=== PATIENT | female | born 1935 | race African-American/Black ===

== ENCOUNTER 2017-08-07 18:15 | Inpatient (IN) | payer MEDICARE, OTHER ==
[~2017-08-07] VITALS: Ht 149.9 cm; Wt 41.7 kg
[~2017-08-07 18:15] MED LIST: CARV25 PO; HYDR25TA PO; TIOT185 IH
[2017-08-07 19:00] VITALS: BP 131/76
[2017-08-07] MEDS ORDERED: FUROSEMIDE 20 MG/2 ML VIAL IVP SCH (21:00)
[2017-08-07] MEDS ORDERED: DOCUSATE SODIUM 283 MG/5 ML MINI-ENEMA PR PRN (21:45)
[2017-08-07] MEDS ORDERED: POTASSIUM CHLORIDE 20 MEQ ER TABLET PO PRN (21:45)
[2017-08-07] MEDS ORDERED: ALBUTEROL SULFATE 2.5 MG/0.5 ML NEB SOLUTION NEB PRN (22:15)
[2017-08-07] MEDS ORDERED: MAGNESIUM HYDROXIDE SUSPENSION 30 ML UDCUP PO PRN (22:15)
[2017-08-07] MEDS: HEPARIN SODIUM,PORCINE 5,000 UNITS/ML VIAL SQ SCH (22:28)
[2017-08-08 00:57] VITALS: BP 120/68
[2017-08-08 02:21] LABS: APPEARANCE,URINE CLEAR (CLEAR); BILIRUBIN,URINE NEGATIVE (NEGATIVE); GLUCOSE, URINE (UA) NEGATIVE (NEGATIVE); KETONES,URINE NEGATIVE (NEGATIVE); LEUKOCYTE ESTERASE ,URINE NEGATIVE (NEGATIVE); NITRATE,URINE NEGATIVE (NEGATIVE); OCCULT BLOOD,URINE NEGATIVE (NEGATIVE); PH,URINE 7.5 (5.0-8.0); PROTEIN,URINE NEGATIVE (NEGATIVE)
[2017-08-08 02:31] LABS: BACTERIA,URINE None Seen /HPF (None Seen); RBC,URINE 0-2 /HPF (0-2); WBC,URINE None Seen /HPF (0-5)
[2017-08-08 06:38] LABS: BASOPHILS % (AUTO) 1.6 % (0.0-2.0); EOSINOPHILS % (AUTO) 3.3 % (1.0-6.0); HEMOGLOBIN 10.3 g/dL (12.0-16.0); LYMPHOCYTES # (AUTO) 1.1 K/uL (1.0-4.8); LYMPHOCYTES % (AUTO) 25.9 % (22.0-44.0); MEAN CORPUSCULAR HGB CONC 34.5 G/dL (31.0-37.0); MEAN CORPUSCULAR VOLUME 107 fL (80-100); MONOCYTES # (AUTO) 0.4 K/uL (0.1-1.0); MONOCYTES % (AUTO) 9.9 % (2.0-9.0); NEUTROPHILS # (AUTO) 2.4 K/uL (1.8-7.7); NEUTROPHILS % (AUTO) 59.3 % (40.0-70.0); PLATELET COUNT (AUTO) 258 K/uL (150-450); RED CELL DISTRIBUTION WIDTH 15.3 % (11.5-14.5)
[2017-08-08 06:56] LABS: ALANINE AMINOTRANSFERASE 32 U/L (12-78); ALBUMIN 2.9 g/dL (3.4-5.0); ALKALINE PHOSPHATASE 105 U/L (46-116); ANION GAP 5 mmol/L (8-16); ASPARTATE AMINOTRANSFERASE 34 U/L (15-37); BILIRUBIN,TOTAL 0.6 mg/dL (0.1-1.0); CALCIUM, TOTAL 8.8 mg/dL (8.8-10.5); CARBON DIOXIDE 34 mmol/L (22-29); CHLORIDE 90 mmol/L (98-107); CREATININE 0.87 mg/dL (0.60-1.30); GLOMERULAR FILTR. RATE CALC > 60 mL/min (>60); GLUCOSE,RANDOM 92 mg/dL (70-110); POTASSIUM 3.8 mmol/L (3.5-5.1); SODIUM SERUM 129 mmol/L (136-145); TOTAL PROTEIN, SERUM 6.7 g/dL (6.4-8.2); UREA NITROGEN, BLOOD 12 mg/dL (7-18)
[2017-08-08] MEDS: OXYGEN THERAPY IH SCH ×2 (08:00→20:00)
[2017-08-08 08:05] VITALS: BP 134/62
[2017-08-08] MEDS: ASPIRIN 81 MG CHEWABLE TABLET PO SCH (08:36)
[2017-08-08] MEDS: DOCUSATE SODIUM 100 MG CAPSULE PO SCH ×2 (08:36→20:32)
[2017-08-08] MEDS: CHOLECALCIFEROL (VIT D3) 1,000 UNITS TABLET PO SCH (08:37)
[2017-08-08] MEDS: MULTIVITAMINS, THERAPEUTIC TABLET PO SCH (08:37)
[2017-08-08] MEDS: POTASSIUM CHLORIDE 20 MEQ ER TABLET PO SCH ×2 (08:37→20:32)
[2017-08-08] MEDS: PANTOPRAZOLE SODIUM 40 MG DR TABLET PO SCH (08:37)
[2017-08-08] MEDS: FUROSEMIDE 20 MG TABLET PO SCH (08:38)
[2017-08-08] MEDS: FOLIC ACID 1 MG TABLET PO SCH (08:38)
[2017-08-08] MEDS: HEPARIN SODIUM,PORCINE 5,000 UNITS/ML VIAL SQ SCH ×2 (08:38→23:00)
[2017-08-08] MEDS: MAGNESIUM OXIDE 400 MG TABLET PO PRN ×3 (10:00→20:32)
[2017-08-08 10:24] LABS: ABG A-A DIFF O2 15.9 mmHg (10-20.0); ABG BASE EXCESS 4.4 mmol/L (-2.0-3.0); ABG CARBOXYHEMOGLOBIN 0.9 % (0.0-1.5); ABG HCO3 28.4 mmol/L (22.0-26.0); ABG METHEMOGLOBIN 0.3 % (0.0-1.5); ABG OXYGEN CONTENT 15.1 mL/dL (15.0-23.0); ABG OXYGEN SATURATION 97.2 % (95.0-98.0); ABG PCO2 35 mmHg (35-45); ABG PH 7.508 (7.35-7.450); ABG TOTAL HEMOGLOBIN 11.1 G/dL (12.0-18.0); PO2, ARTERIAL BG 91.6 mmHg (75.0-83.0); SOURCE, BLOOD GAS ARTERIAL; TEMPERATURE, FAHRENHEIT, BG 98.3 FAHREN (96.0-98.6)
[2017-08-08 10:25] LABS: SITE, BLOOD GAS RT RADIAL
[2017-08-08] MEDS ORDERED: SODIUM CHLORIDE 0.9% 100 ML ONE (14:40)
[2017-08-08] MEDS ORDERED: BARIUM SULFATE 0.1% SUSPENSION 450 ML BOTTLE ONE (14:40)
[2017-08-08] MEDS ORDERED: IOVERSOL 320 MG/ML 100 ML VIAL ONE (14:40)
[2017-08-08 15:20] VITALS: BP 122/52
[2017-08-08] MEDS: ChlordiazePOXIDE HCL 25 MG CAPSULE PO SCH ×2 (18:09→20:32)
[2017-08-08] MEDS: SENNA 187 MG TABLET PO SCH (20:32)
[2017-08-08 23:20] VITALS: BP 121/74
[2017-08-09] MEDS: OXYGEN THERAPY IH SCH ×2 (08:01→20:41)
[2017-08-09 08:13] VITALS: BP 132/67
[2017-08-09 09:46] LABS: ALANINE AMINOTRANSFERASE 38 U/L (12-78); ALBUMIN 2.8 g/dL (3.4-5.0); ALKALINE PHOSPHATASE 98 U/L (46-116); ANION GAP 6 mmol/L (8-16); ASPARTATE AMINOTRANSFERASE 36 U/L (15-37); BILIRUBIN,TOTAL 0.5 mg/dL (0.1-1.0); CARBON DIOXIDE 31 mmol/L (22-29); CHLORIDE 94 mmol/L (98-107); CREATININE 0.88 mg/dL (0.60-1.30); GLOMERULAR FILTR. RATE CALC > 60 mL/min (>60); GLUCOSE,RANDOM 75 mg/dL (70-110); POTASSIUM 4.7 mmol/L (3.5-5.1); SODIUM SERUM 131 mmol/L (136-145); TOTAL PROTEIN, SERUM 6.5 g/dL (6.4-8.2); UREA NITROGEN, BLOOD 15 mg/dL (7-18); URIC ACID 5.5 mg/dL (2.6-7.2)
[2017-08-09] MEDS: FOLIC ACID 1 MG TABLET PO SCH (10:02)
[2017-08-09] MEDS: DOCUSATE SODIUM 100 MG CAPSULE PO SCH ×2 (10:02→20:41)
[2017-08-09] MEDS: FUROSEMIDE 20 MG TABLET PO SCH (10:03)
[2017-08-09] MEDS: MULTIVITAMINS, THERAPEUTIC TABLET PO SCH (10:03)
[2017-08-09] MEDS: CHOLECALCIFEROL (VIT D3) 1,000 UNITS TABLET PO SCH (10:03)
[2017-08-09] MEDS: HEPARIN SODIUM,PORCINE 5,000 UNITS/ML VIAL SQ SCH ×2 (10:03→20:41)
[2017-08-09] MEDS: PANTOPRAZOLE SODIUM 40 MG DR TABLET PO SCH (10:03)
[2017-08-09] MEDS: POTASSIUM CHLORIDE 20 MEQ ER TABLET PO SCH ×2 (10:03→20:41)
[2017-08-09] MEDS: ASPIRIN 81 MG CHEWABLE TABLET PO SCH (10:03)
[2017-08-09] MEDS: ChlordiazePOXIDE HCL 25 MG CAPSULE PO SCH (10:04)
[2017-08-09 16:00] LABS: CREATININE,URINE RANDOM 77.4 mg/dL (30.0-125.0)
[2017-08-09 16:45] VITALS: BP 114/75
[2017-08-09] MEDS: SENNA 187 MG TABLET PO SCH (20:41)
[2017-08-10 01:00] VITALS: BP 164/95
[2017-08-10 06:12] VITALS: BP 120/70
[2017-08-10 07:22] LABS: ANION GAP 3 mmol/L (8-16); CALCIUM, TOTAL 9.3 mg/dL (8.8-10.5); CARBON DIOXIDE 32 mmol/L (22-29); CHLORIDE 97 mmol/L (98-107); CREATININE 0.88 mg/dL (0.60-1.30); GLOMERULAR FILTR. RATE CALC > 60 mL/min (>60); GLUCOSE,RANDOM 80 mg/dL (70-110); POTASSIUM 5.4 mmol/L (3.5-5.1); SODIUM SERUM 132 mmol/L (136-145); UREA NITROGEN, BLOOD 18 mg/dL (7-18)
[2017-08-10 08:00] VITALS: BP 137/70
[2017-08-10] MEDS: OXYGEN THERAPY IH SCH ×2 (08:00→20:00)
[2017-08-10] MEDS: HEPARIN SODIUM,PORCINE 5,000 UNITS/ML VIAL SQ SCH ×2 (08:27→20:57)
[2017-08-10] MEDS: POTASSIUM CHLORIDE 20 MEQ ER TABLET PO SCH ×2 (08:27→09:00)
[2017-08-10] MEDS: PANTOPRAZOLE SODIUM 40 MG DR TABLET PO SCH (08:27)
[2017-08-10] MEDS: ASPIRIN 81 MG CHEWABLE TABLET PO SCH (08:27)
[2017-08-10] MEDS: CHOLECALCIFEROL (VIT D3) 1,000 UNITS TABLET PO SCH (08:27)
[2017-08-10] MEDS: MULTIVITAMINS, THERAPEUTIC TABLET PO SCH (08:27)
[2017-08-10] MEDS: FUROSEMIDE 20 MG TABLET PO SCH (08:27)
[2017-08-10] MEDS: FOLIC ACID 1 MG TABLET PO SCH (08:27)
[2017-08-10] MEDS: DOCUSATE SODIUM 100 MG CAPSULE PO SCH ×2 (09:00→21:00)
[2017-08-10 15:16] VITALS: BP 124/78
[2017-08-10 21:00] VITALS: BP 142/63
[2017-08-10] MEDS: SENNA 187 MG TABLET PO SCH (21:00)
[2017-08-11 03:40] VITALS: BP 110/68
[2017-08-11] MEDS: OXYGEN THERAPY IH SCH ×2 (08:00→20:00)
[2017-08-11 08:14] VITALS: BP 126/84
[2017-08-11 08:28] LABS: ANION GAP 5 mmol/L (8-16); CALCIUM, TOTAL 9.3 mg/dL (8.8-10.5); CARBON DIOXIDE 32 mmol/L (22-29); CHLORIDE 96 mmol/L (98-107); CREATININE 0.82 mg/dL (0.60-1.30); FERRITIN 1406 ng/mL (8-252); GLOMERULAR FILTR. RATE CALC > 60 mL/min (>60); GLUCOSE,RANDOM 80 mg/dL (70-110); POTASSIUM 4.8 mmol/L (3.5-5.1); SODIUM SERUM 133 mmol/L (136-145); UREA NITROGEN, BLOOD 16 mg/dL (7-18)
[2017-08-11 08:32] LABS: % IRON SATURATION 37.4 % (22-44); IRON, SERUM 82 mcg/dL (50-175); TOTAL IRON BINDING CAPACITY 219 mcg/dL (250-450)
[2017-08-11] MEDS: CHOLECALCIFEROL (VIT D3) 1,000 UNITS TABLET PO SCH (09:58)
[2017-08-11] MEDS: MULTIVITAMINS, THERAPEUTIC TABLET PO SCH (09:58)
[2017-08-11] MEDS: FOLIC ACID 1 MG TABLET PO SCH (09:58)
[2017-08-11] MEDS: PANTOPRAZOLE SODIUM 40 MG DR TABLET PO SCH (09:58)
[2017-08-11] MEDS: DOCUSATE SODIUM 100 MG CAPSULE PO SCH ×2 (09:58→20:23)
[2017-08-11] MEDS: FUROSEMIDE 20 MG TABLET PO SCH (09:59)
[2017-08-11] MEDS: ASPIRIN 81 MG CHEWABLE TABLET PO SCH (09:59)
[2017-08-11] MEDS: HEPARIN SODIUM,PORCINE 5,000 UNITS/ML VIAL SQ SCH ×2 (10:00→20:24)
[2017-08-11 15:06] VITALS: BP 128/68
[2017-08-11] MEDS: SENNA 187 MG TABLET PO SCH (20:23)
[2017-08-11 23:58] VITALS: BP 115/56
[2017-08-12 07:11] LABS: ANION GAP 7 mmol/L (8-16); CALCIUM, TOTAL 9.2 mg/dL (8.8-10.5); CARBON DIOXIDE 30 mmol/L (22-29); CHLORIDE 98 mmol/L (98-107); CREATININE 0.88 mg/dL (0.60-1.30); GLOMERULAR FILTR. RATE CALC > 60 mL/min (>60); GLUCOSE,RANDOM 86 mg/dL (70-110); PHOSPHORUS 2.8 mg/dL (2.5-4.9); POTASSIUM 4.2 mmol/L (3.5-5.1); SODIUM SERUM 135 mmol/L (136-145); UREA NITROGEN, BLOOD 12 mg/dL (7-18)
[2017-08-12 07:57] VITALS: BP 99/69
[2017-08-12] MEDS: OXYGEN THERAPY IH SCH (08:00)
[2017-08-12 09:46] VITALS: BP 92/73
[2017-08-12] MEDS: FOLIC ACID 1 MG TABLET PO SCH (09:51)
[2017-08-12] MEDS: CHOLECALCIFEROL (VIT D3) 1,000 UNITS TABLET PO SCH (09:51)
[2017-08-12] MEDS: ASPIRIN 81 MG CHEWABLE TABLET PO SCH (09:51)
[2017-08-12] MEDS: PANTOPRAZOLE SODIUM 40 MG DR TABLET PO SCH (09:52)
[2017-08-12] MEDS: MULTIVITAMINS, THERAPEUTIC TABLET PO SCH (09:52)
[2017-08-12] MEDS: HEPARIN SODIUM,PORCINE 5,000 UNITS/ML VIAL SQ SCH ×2 (09:52→19:07)
[2017-08-12] MEDS: DOCUSATE SODIUM 100 MG CAPSULE PO SCH ×2 (09:52→19:07)
[2017-08-12] MEDS ORDERED: MAGNESIUM SULFATE 4 GM/WATER 100 ML IV PRN (10:00)
[2017-08-12] MEDS: FUROSEMIDE 20 MG TABLET PO SCH (10:00)
[2017-08-12] MEDS ORDERED: MAGNESIUM GLUCONATE 1 GM/5 ML LIQUID 22 ML UDCUP PO PRN (10:00)
[2017-08-12] MEDS ORDERED: SODIUM CHLORIDE 0.9% 250 ML IV ONE (12:00)
[2017-08-12] MEDS: MAGNESIUM SULFATE 2 GM in DEXTROSE 5%-WATER 50 ML IV PRN (12:20)
[2017-08-12 16:03] VITALS: BP 117/70
[2017-08-12] MEDS: SENNA 187 MG TABLET PO SCH (19:07)
[2017-08-13 05:21] VITALS: BP 117/63
[2017-08-13 07:37] VITALS: BP 127/87
[2017-08-13 07:51] LABS: ANION GAP 6 mmol/L (8-16); CALCIUM, TOTAL 9.4 mg/dL (8.8-10.5); CARBON DIOXIDE 30 mmol/L (22-29); CHLORIDE 96 mmol/L (98-107); CREATININE 0.96 mg/dL (0.60-1.30); GLOMERULAR FILTR. RATE CALC > 60 mL/min (>60); GLUCOSE,RANDOM 94 mg/dL (70-110); POTASSIUM 3.9 mmol/L (3.5-5.1); SODIUM SERUM 132 mmol/L (136-145); UREA NITROGEN, BLOOD 13 mg/dL (7-18)
[2017-08-13 07:58] LABS: B-TYPE NATRIURETIC PEPTIDE 129 pg/mL (0-100)
[2017-08-13] MEDS: ASPIRIN 81 MG CHEWABLE TABLET PO SCH (08:49)
[2017-08-13] MEDS: FOLIC ACID 1 MG TABLET PO SCH (08:49)
[2017-08-13] MEDS: PANTOPRAZOLE SODIUM 40 MG DR TABLET PO SCH (08:49)
[2017-08-13] MEDS: DOCUSATE SODIUM 100 MG CAPSULE PO SCH ×2 (08:49→20:12)
[2017-08-13] MEDS: MULTIVITAMINS, THERAPEUTIC TABLET PO SCH (08:49)
[2017-08-13] MEDS: OXYGEN THERAPY IH SCH ×3 (08:49→20:00)
[2017-08-13] MEDS: MAGNESIUM OXIDE 400 MG TABLET PO PRN ×3 (08:50→21:01)
[2017-08-13] MEDS: HEPARIN SODIUM,PORCINE 5,000 UNITS/ML VIAL SQ SCH ×2 (08:50→20:14)
[2017-08-13] MEDS: CHOLECALCIFEROL (VIT D3) 1,000 UNITS TABLET PO SCH (08:50)
[2017-08-13 10:32] LABS: APPEARANCE,URINE CLOUDY (CLEAR); BILIRUBIN,URINE NEGATIVE (NEGATIVE); GLUCOSE, URINE (UA) NEGATIVE (NEGATIVE); KETONES,URINE NEGATIVE (NEGATIVE); LEUKOCYTE ESTERASE ,URINE TRACE (NEGATIVE); NITRATE,URINE NEGATIVE (NEGATIVE); OCCULT BLOOD,URINE NEGATIVE (NEGATIVE); PH,URINE 5.5 (5.0-8.0); PROTEIN,URINE NEGATIVE (NEGATIVE); UROBILINOGEN,URINE 0.2 mg/dL (<=1.0)
[2017-08-13 10:50] LABS: BACTERIA,URINE Few /HPF (None Seen); RBC,URINE 0-2 /HPF (0-2); SQUAMOUS EPITHELIAL CELL,UR Moderate /LPF (None Seen)
[2017-08-13 15:25] VITALS: BP 105/55
[2017-08-13 20:09] VITALS: BP 109/52
[2017-08-13] MEDS: SENNA 187 MG TABLET PO SCH (20:12)
[2017-08-14 00:07] VITALS: BP 137/52
[2017-08-14 07:06] LABS: MAGNESIUM 1.5 mg/dL (1.80-2.40)
[2017-08-14 07:30] VITALS: BP 102/51
[2017-08-14] MEDS: OXYGEN THERAPY IH SCH ×2 (08:00→20:00)
[2017-08-14] MEDS: ASPIRIN 81 MG CHEWABLE TABLET PO SCH (09:51)
[2017-08-14] MEDS: CHOLECALCIFEROL (VIT D3) 1,000 UNITS TABLET PO SCH (09:52)
[2017-08-14] MEDS: DOCUSATE SODIUM 100 MG CAPSULE PO SCH ×2 (09:52→20:12)
[2017-08-14] MEDS: PANTOPRAZOLE SODIUM 40 MG DR TABLET PO SCH (09:52)
[2017-08-14] MEDS: HEPARIN SODIUM,PORCINE 5,000 UNITS/ML VIAL SQ SCH ×2 (09:52→20:12)
[2017-08-14] MEDS: FOLIC ACID 1 MG TABLET PO SCH (09:52)
[2017-08-14] MEDS: MULTIVITAMINS, THERAPEUTIC TABLET PO SCH (09:52)
[2017-08-14 10:42] LABS: BASOPHILS % (AUTO) 0.8 % (0.0-2.0); EOSINOPHILS % (AUTO) 2.7 % (1.0-6.0); HEMATOCRIT 28.4 % (36-46); HEMOGLOBIN 9.8 g/dL (12.0-16.0); LYMPHOCYTES # (AUTO) 1.1 K/uL (1.0-4.8); LYMPHOCYTES % (AUTO) 26.3 % (22.0-44.0); MEAN CORPUSCULAR HEMOGLOBIN 37.1 pg (26.0-34.0); MEAN CORPUSCULAR HGB CONC 34.5 G/dL (31.0-37.0); MEAN CORPUSCULAR VOLUME 108 fL (80-100); MONOCYTES # (AUTO) 0.5 K/uL (0.1-1.0); MONOCYTES % (AUTO) 12.7 % (2.0-9.0); NEUTROPHILS # (AUTO) 2.3 K/uL (1.8-7.7); NEUTROPHILS % (AUTO) 57.5 % (40.0-70.0); PLATELET COUNT (AUTO) 322 K/uL (150-450); RED BLOOD CELL COUNT(AUTO) 2.64 MIL/uL (4.00-5.20); RED CELL DISTRIBUTION WIDTH 14.5 % (11.5-14.5)
[2017-08-14 10:44] LABS: POTASSIUM 4.1 mmol/L (3.5-5.1)
[2017-08-14 10:50] LABS: CREATININE 0.77 mg/dL (0.60-1.30)
[2017-08-14] MEDS ORDERED: SODIUM CHLORIDE 0.9% 250 ML IV ONE (15:50)
[2017-08-14] MEDS: 0.9% SODIUM CHLORIDE 10 ML SYRINGE IVP SCH (15:54)
[2017-08-14] MEDS: MAGNESIUM SULFATE 2 GM in DEXTROSE 5%-WATER 50 ML IV PRN (16:05)
[2017-08-14 16:09] VITALS: BP 123/81
[2017-08-14 20:10] VITALS: BP 101/75
[2017-08-14] MEDS: SENNA 187 MG TABLET PO SCH (20:12)
[2017-08-15] MEDS: 0.9% SODIUM CHLORIDE 10 ML SYRINGE IVP SCH ×3 (00:27→16:24)
[2017-08-15 00:35] VITALS: BP 145/70
[2017-08-15 06:34] LABS: BASOPHILS % (AUTO) 1.2 % (0.0-2.0); EOSINOPHILS % (AUTO) 3.1 % (1.0-6.0); LYMPHOCYTES # (AUTO) 0.9 K/uL (1.0-4.8); LYMPHOCYTES % (AUTO) 23.2 % (22.0-44.0); MEAN CORPUSCULAR HEMOGLOBIN 38.2 pg (26.0-34.0); MEAN CORPUSCULAR HGB CONC 35.9 G/dL (31.0-37.0); MEAN CORPUSCULAR VOLUME 106 fL (80-100); MONOCYTES # (AUTO) 0.4 K/uL (0.1-1.0); MONOCYTES % (AUTO) 10.3 % (2.0-9.0); NEUTROPHILS # (AUTO) 2.4 K/uL (1.8-7.7); NEUTROPHILS % (AUTO) 62.2 % (40.0-70.0); PLATELET COUNT (AUTO) 318 K/uL (150-450); RED BLOOD CELL COUNT(AUTO) 2.35 MIL/uL (4.00-5.20); RED CELL DISTRIBUTION WIDTH 14.4 % (11.5-14.5)
[2017-08-15 06:43] LABS: ANION GAP 4 mmol/L (8-16); CALCIUM, TOTAL 8.8 mg/dL (8.8-10.5); CARBON DIOXIDE 31 mmol/L (22-29); CHLORIDE 100 mmol/L (98-107); CREATININE 0.72 mg/dL (0.60-1.30); GLOMERULAR FILTR. RATE CALC > 60 mL/min (>60); GLUCOSE,RANDOM 83 mg/dL (70-110); SODIUM SERUM 135 mmol/L (136-145); UREA NITROGEN, BLOOD 12 mg/dL (7-18)
[2017-08-15 07:30] VITALS: BP 117/71
[2017-08-15] MEDS: OXYGEN THERAPY IH SCH ×2 (08:00→20:00)
[2017-08-15] MEDS: DOCUSATE SODIUM 100 MG CAPSULE PO SCH ×2 (08:45→20:30)
[2017-08-15] MEDS: HEPARIN SODIUM,PORCINE 5,000 UNITS/ML VIAL SQ SCH ×2 (08:45→20:27)
[2017-08-15] MEDS: ASPIRIN 81 MG CHEWABLE TABLET PO SCH (08:45)
[2017-08-15] MEDS: MULTIVITAMINS, THERAPEUTIC TABLET PO SCH (08:46)
[2017-08-15] MEDS: PANTOPRAZOLE SODIUM 40 MG DR TABLET PO SCH (08:46)
[2017-08-15] MEDS: FOLIC ACID 1 MG TABLET PO SCH (08:46)
[2017-08-15] MEDS: CHOLECALCIFEROL (VIT D3) 1,000 UNITS TABLET PO SCH (08:46)
[2017-08-15] MEDS: MAGNESIUM OXIDE 400 MG TABLET PO PRN ×3 (14:19→21:16)
[2017-08-15 15:45] VITALS: BP 115/64
[2017-08-15] MEDS ORDERED: ALPRAZolam 0.25 MG TABLET PO ONE (20:15)
[2017-08-15] MEDS: SENNA 187 MG TABLET PO SCH (20:30)
[2017-08-16] MEDS: 0.9% SODIUM CHLORIDE 10 ML SYRINGE IVP SCH ×4 (03:08→23:33)
[2017-08-16 03:30] VITALS: BP 147/69
[2017-08-16] MEDS: ACETAMINOPHEN 325 MG TABLET PO PRN ×2 (03:50→19:14)
[2017-08-16 07:40] VITALS: BP 112/66
[2017-08-16] MEDS: OXYGEN THERAPY IH SCH ×2 (08:00→19:14)
[2017-08-16] MEDS ORDERED: SODIUM CHLORIDE 0.9% 100 ML ONE (08:01)
[2017-08-16] MEDS: PANTOPRAZOLE SODIUM 40 MG DR TABLET PO SCH (08:30)
[2017-08-16] MEDS: DOCUSATE SODIUM 100 MG CAPSULE PO SCH ×2 (08:30→20:34)
[2017-08-16] MEDS: CHOLECALCIFEROL (VIT D3) 1,000 UNITS TABLET PO SCH (08:30)
[2017-08-16] MEDS: HEPARIN SODIUM,PORCINE 5,000 UNITS/ML VIAL SQ SCH ×2 (08:30→20:34)
[2017-08-16] MEDS: MULTIVITAMINS, THERAPEUTIC TABLET PO SCH (08:31)
[2017-08-16] MEDS: FOLIC ACID 1 MG TABLET PO SCH (08:31)
[2017-08-16] MEDS: ASPIRIN 81 MG CHEWABLE TABLET PO SCH (08:31)
[2017-08-16] MEDS: MAGNESIUM SULFATE 2 GM in DEXTROSE 5%-WATER 50 ML IV PRN (08:36)
[2017-08-16 15:42] VITALS: BP 105/72
[2017-08-16 19:10] VITALS: BP 111/75
[2017-08-16] MEDS: SENNA 187 MG TABLET PO SCH (20:34)
[2017-08-16 23:35] VITALS: BP 118/70
[2017-08-17 07:01] VITALS: BP 131/84
[2017-08-17] MEDS: ACETAMINOPHEN 325 MG TABLET PO PRN ×2 (07:01→18:45)
[2017-08-17] MEDS: OXYGEN THERAPY IH SCH ×2 (08:00→20:00)
[2017-08-17] MEDS ORDERED: PANT40TA25 PO (08:05)
[2017-08-17] MEDS ORDERED: DSS100 PO (08:05)
[2017-08-17] MEDS ORDERED: ASPI81 PO (08:05)
[2017-08-17] MEDS ORDERED: FOLI1 PO (08:05)
[2017-08-17] MEDS ORDERED: VITAD1000 PO (08:05)
[2017-08-17] MEDS ORDERED: MULT-1239 PO (08:05)
[2017-08-17] MEDS: MAGNESIUM SULFATE 2 GM in DEXTROSE 5%-WATER 50 ML IV PRN (08:07)
[2017-08-17] MEDS: 0.9% SODIUM CHLORIDE 10 ML SYRINGE IVP SCH ×3 (08:07→23:27)
[2017-08-17] MEDS: CHOLECALCIFEROL (VIT D3) 1,000 UNITS TABLET PO SCH (08:08)
[2017-08-17] MEDS: PANTOPRAZOLE SODIUM 40 MG DR TABLET PO SCH (08:08)
[2017-08-17] MEDS: ASPIRIN 81 MG CHEWABLE TABLET PO SCH (08:08)
[2017-08-17] MEDS: HEPARIN SODIUM,PORCINE 5,000 UNITS/ML VIAL SQ SCH ×2 (08:08→20:24)
[2017-08-17] MEDS: FOLIC ACID 1 MG TABLET PO SCH (08:08)
[2017-08-17] MEDS: DOCUSATE SODIUM 100 MG CAPSULE PO SCH ×2 (08:08→20:23)
[2017-08-17] MEDS: MULTIVITAMINS, THERAPEUTIC TABLET PO SCH (08:08)
[2017-08-17] MEDS ORDERED: MAGNESIUM CHLORIDE 64 MG ER TABLET PO SCH (10:00)
[2017-08-17 15:36] VITALS: BP 115/72
[2017-08-17] MEDS: SENNA 187 MG TABLET PO SCH (20:23)
[2017-08-17 23:45] VITALS: BP 118/70
[2017-08-18 07:24] LABS: ANION GAP 3 mmol/L (8-16); CARBON DIOXIDE 30 mmol/L (22-29); CHLORIDE 104 mmol/L (98-107); CREATININE 0.67 mg/dL (0.60-1.30); GLOMERULAR FILTR. RATE CALC > 60 mL/min (>60); GLUCOSE,RANDOM 89 mg/dL (70-110); POTASSIUM 4.1 mmol/L (3.5-5.1); SODIUM SERUM 137 mmol/L (136-145); UREA NITROGEN, BLOOD 12 mg/dL (7-18)
[2017-08-18 07:44] VITALS: BP 124/90
[2017-08-18] MEDS: OXYGEN THERAPY IH SCH ×2 (08:00→19:31)
[2017-08-18] MEDS: MULTIVITAMINS, THERAPEUTIC TABLET PO SCH (08:14)
[2017-08-18] MEDS: ASPIRIN 81 MG CHEWABLE TABLET PO SCH (08:14)
[2017-08-18] MEDS: PANTOPRAZOLE SODIUM 40 MG DR TABLET PO SCH (08:14)
[2017-08-18] MEDS: HEPARIN SODIUM,PORCINE 5,000 UNITS/ML VIAL SQ SCH ×2 (08:14→20:50)
[2017-08-18] MEDS: CHOLECALCIFEROL (VIT D3) 1,000 UNITS TABLET PO SCH (08:14)
[2017-08-18] MEDS: DOCUSATE SODIUM 100 MG CAPSULE PO SCH ×2 (08:14→20:50)
[2017-08-18] MEDS: FOLIC ACID 1 MG TABLET PO SCH (08:14)
[2017-08-18] MEDS: 0.9% SODIUM CHLORIDE 10 ML SYRINGE IVP SCH ×2 (08:16→17:20)
[2017-08-18] MEDS: MAGNESIUM SULFATE 2 GM in DEXTROSE 5%-WATER 50 ML IV PRN (09:01)
[2017-08-18] MEDS: MAGNESIUM CHLORIDE 64 MG ER TABLET PO SCH (09:49)
[2017-08-18 10:14] LABS: BASOPHILS % (AUTO) 1.3 % (0.0-2.0); EOSINOPHILS % (AUTO) 2.8 % (1.0-6.0); HEMOGLOBIN 8.3 g/dL (12.0-16.0); LYMPHOCYTES # (AUTO) 1.2 K/uL (1.0-4.8); LYMPHOCYTES % (AUTO) 23.9 % (22.0-44.0); MEAN CORPUSCULAR HEMOGLOBIN 36.8 pg (26.0-34.0); MEAN CORPUSCULAR HGB CONC 34.6 G/dL (31.0-37.0); MEAN CORPUSCULAR VOLUME 107 fL (80-100); MONOCYTES # (AUTO) 0.4 K/uL (0.1-1.0); MONOCYTES % (AUTO) 8.5 % (2.0-9.0); NEUTROPHILS # (AUTO) 3.1 K/uL (1.8-7.7); NEUTROPHILS % (AUTO) 63.5 % (40.0-70.0); PLATELET COUNT (AUTO) 290 K/uL (150-450); RED BLOOD CELL COUNT(AUTO) 2.25 MIL/uL (4.00-5.20); RED CELL DISTRIBUTION WIDTH 14.1 % (11.5-14.5)
[2017-08-18 17:34] VITALS: BP 132/72
[2017-08-18] MEDS: SENNA 187 MG TABLET PO SCH (20:50)
[2017-08-19] MEDS: 0.9% SODIUM CHLORIDE 10 ML SYRINGE IVP SCH ×4 (02:38→23:20)
[2017-08-19 03:00] VITALS: BP 132/90
[2017-08-19 07:18] LABS: BASOPHILS % (AUTO) 0.9 % (0.0-2.0); EOSINOPHILS % (AUTO) 2.8 % (1.0-6.0); HEMATOCRIT 25.3 % (36-46); HEMOGLOBIN 8.7 g/dL (12.0-16.0); LYMPHOCYTES % (AUTO) 17.6 % (22.0-44.0); MEAN CORPUSCULAR HEMOGLOBIN 36.6 pg (26.0-34.0); MEAN CORPUSCULAR HGB CONC 34.5 G/dL (31.0-37.0); MEAN CORPUSCULAR VOLUME 106 fL (80-100); MONOCYTES # (AUTO) 0.4 K/uL (0.1-1.0); MONOCYTES % (AUTO) 7.4 % (2.0-9.0); NEUTROPHILS # (AUTO) 3.9 K/uL (1.8-7.7); NEUTROPHILS % (AUTO) 71.3 % (40.0-70.0); PLATELET COUNT (AUTO) 283 K/uL (150-450); RED BLOOD CELL COUNT(AUTO) 2.39 MIL/uL (4.00-5.20); RED CELL DISTRIBUTION WIDTH 14.2 % (11.5-14.5)
[2017-08-19 07:32] LABS: ALBUMIN 2.5 g/dL (3.4-5.0); ANION GAP 3 mmol/L (8-16); CARBON DIOXIDE 30 mmol/L (22-29); CHLORIDE 104 mmol/L (98-107); CREATININE 0.77 mg/dL (0.60-1.30); GLOMERULAR FILTR. RATE CALC > 60 mL/min (>60); GLUCOSE,RANDOM 87 mg/dL (70-110); POTASSIUM 3.9 mmol/L (3.5-5.1); SODIUM SERUM 137 mmol/L (136-145); UREA NITROGEN, BLOOD 12 mg/dL (7-18)
[2017-08-19 08:05] VITALS: BP 160/82
[2017-08-19] MEDS: CHOLECALCIFEROL (VIT D3) 1,000 UNITS TABLET PO SCH (08:50)
[2017-08-19] MEDS: HEPARIN SODIUM,PORCINE 5,000 UNITS/ML VIAL SQ SCH ×2 (08:50→20:45)
[2017-08-19] MEDS: FOLIC ACID 1 MG TABLET PO SCH (08:50)
[2017-08-19] MEDS: MULTIVITAMINS, THERAPEUTIC TABLET PO SCH (08:50)
[2017-08-19] MEDS: PANTOPRAZOLE SODIUM 40 MG DR TABLET PO SCH (08:50)
[2017-08-19] MEDS: DOCUSATE SODIUM 100 MG CAPSULE PO SCH ×2 (08:50→20:45)
[2017-08-19] MEDS: MAGNESIUM CHLORIDE 64 MG ER TABLET PO SCH (09:00)
[2017-08-19] MEDS: OXYGEN THERAPY IH SCH ×2 (09:01→20:00)
[2017-08-19] MEDS: MAGNESIUM SULFATE 2 GM in DEXTROSE 5%-WATER 50 ML IV PRN (12:10)
[2017-08-19 16:15] VITALS: BP 131/83
[2017-08-19 20:43] VITALS: BP 124/73
[2017-08-19] MEDS: SENNA 187 MG TABLET PO SCH (20:44)
[2017-08-20 00:26] VITALS: BP 123/77
[2017-08-20] MEDS ORDERED: SLOMG PO (03:33)
[2017-08-20 06:48] LABS: ANION GAP 8 mmol/L (8-16); CALCIUM, TOTAL 9.4 mg/dL (8.8-10.5); CARBON DIOXIDE 28 mmol/L (22-29); CHLORIDE 101 mmol/L (98-107); CREATININE 0.81 mg/dL (0.60-1.30); GLOMERULAR FILTR. RATE CALC > 60 mL/min (>60); GLUCOSE,RANDOM 107 mg/dL (70-110); PHOSPHORUS 3.1 mg/dL (2.5-4.9); POTASSIUM 3.8 mmol/L (3.5-5.1); SODIUM SERUM 137 mmol/L (136-145); UREA NITROGEN, BLOOD 12 mg/dL (7-18)
[2017-08-20 07:19] VITALS: BP 126/74
[2017-08-20] MEDS: MULTIVITAMINS, THERAPEUTIC TABLET PO SCH (08:38)
[2017-08-20] MEDS: MAGNESIUM SULFATE 2 GM in DEXTROSE 5%-WATER 50 ML IV PRN (08:38)
[2017-08-20] MEDS: FOLIC ACID 1 MG TABLET PO SCH (08:38)
[2017-08-20] MEDS: PANTOPRAZOLE SODIUM 40 MG DR TABLET PO SCH (08:38)
[2017-08-20] MEDS: MAGNESIUM CHLORIDE 64 MG ER TABLET PO SCH (08:39)
[2017-08-20] MEDS: CHOLECALCIFEROL (VIT D3) 1,000 UNITS TABLET PO SCH (08:39)
[2017-08-20] MEDS: DOCUSATE SODIUM 100 MG CAPSULE PO SCH ×2 (08:41→20:19)
[2017-08-20] MEDS: HEPARIN SODIUM,PORCINE 5,000 UNITS/ML VIAL SQ SCH (08:48)
[2017-08-20] MEDS: OXYGEN THERAPY IH SCH ×2 (08:55→20:00)
[2017-08-20] MEDS: 0.9% SODIUM CHLORIDE 10 ML SYRINGE IVP SCH ×3 (08:55→23:08)
[2017-08-20 15:40] VITALS: BP 132/80
[2017-08-20] MEDS: SENNA 187 MG TABLET PO SCH (20:19)
[2017-08-20 23:16] VITALS: BP 130/75
[2017-08-21 07:09] VITALS: BP 128/71
[2017-08-21] MEDS: 0.9% SODIUM CHLORIDE 10 ML SYRINGE IVP SCH ×3 (08:00→23:22)
[2017-08-21] MEDS: OXYGEN THERAPY IH SCH ×2 (08:00→20:00)
[2017-08-21] MEDS: DOCUSATE SODIUM 100 MG CAPSULE PO SCH ×2 (08:36→20:28)
[2017-08-21] MEDS: PANTOPRAZOLE SODIUM 40 MG DR TABLET PO SCH (08:36)
[2017-08-21] MEDS: FOLIC ACID 1 MG TABLET PO SCH (08:36)
[2017-08-21] MEDS: MAGNESIUM CHLORIDE 64 MG ER TABLET PO SCH (08:36)
[2017-08-21] MEDS: CHOLECALCIFEROL (VIT D3) 1,000 UNITS TABLET PO SCH (08:36)
[2017-08-21] MEDS: MULTIVITAMINS, THERAPEUTIC TABLET PO SCH (08:36)
[2017-08-21 10:15] VITALS: BP 114/75
[2017-08-21] MEDS: MAGNESIUM SULFATE 2 GM in DEXTROSE 5%-WATER 50 ML IV PRN (10:44)
[2017-08-21 11:24] LABS: BASOPHILS % (AUTO) 0.8 % (0.0-2.0); EOSINOPHILS % (AUTO) 4.5 % (1.0-6.0); HEMATOCRIT 25.3 % (36-46); HEMOGLOBIN 8.7 g/dL (12.0-16.0); LYMPHOCYTES % (AUTO) 20.1 % (22.0-44.0); MEAN CORPUSCULAR HEMOGLOBIN 36.5 pg (26.0-34.0); MEAN CORPUSCULAR HGB CONC 34.2 G/dL (31.0-37.0); MEAN CORPUSCULAR VOLUME 107 fL (80-100); MONOCYTES # (AUTO) 0.5 K/uL (0.1-1.0); MONOCYTES % (AUTO) 9.2 % (2.0-9.0); NEUTROPHILS # (AUTO) 3.4 K/uL (1.8-7.7); NEUTROPHILS % (AUTO) 65.4 % (40.0-70.0); PLATELET COUNT (AUTO) 288 K/uL (150-450); RED BLOOD CELL COUNT(AUTO) 2.38 MIL/uL (4.00-5.20); RED CELL DISTRIBUTION WIDTH 14.3 % (11.5-14.5)
[2017-08-21 16:59] VITALS: BP 101/70
[2017-08-21 20:24] VITALS: BP 123/82
[2017-08-21] MEDS: SENNA 187 MG TABLET PO SCH (20:28)
[2017-08-22 00:20] VITALS: BP 110/75
[2017-08-22 08:00] VITALS: BP 95/66
[2017-08-22] MEDS: OXYGEN THERAPY IH SCH (08:00)
[2017-08-22] MEDS: FOLIC ACID 1 MG TABLET PO SCH (08:40)
[2017-08-22] MEDS: PANTOPRAZOLE SODIUM 40 MG DR TABLET PO SCH (08:40)
[2017-08-22] MEDS: 0.9% SODIUM CHLORIDE 10 ML SYRINGE IVP SCH (08:40)
[2017-08-22] MEDS: CHOLECALCIFEROL (VIT D3) 1,000 UNITS TABLET PO SCH (08:40)
[2017-08-22] MEDS: MULTIVITAMINS, THERAPEUTIC TABLET PO SCH (08:40)
[2017-08-22] MEDS: DOCUSATE SODIUM 100 MG CAPSULE PO SCH (08:40)
[2017-08-22] MEDS: MAGNESIUM CHLORIDE 64 MG ER TABLET PO SCH (08:40)
[2017-08-22] MEDS: MAGNESIUM SULFATE 2 GM in DEXTROSE 5%-WATER 50 ML IV PRN (10:27)
[2017-08-22 13:30] VITALS: BP 122/66
== END 2017-08-22 14:55 | disposition home health service (06) | DRG 291 ==
LOC: 2WR 18:15
PROVIDERS: ADMIT Physical Medicine & Rehabilitation
DX: I11.0 Hypertensive heart disease with heart failure (principal); E43 Unspecified severe protein-calorie malnutrition; G93.41 Metabolic encephalopathy; J96.11 Chronic respiratory failure with hypoxia; E22.2 Syndrome of inappropriate secretion of antidiuretic hormone; E87.5 Hyperkalemia; D53.9 Nutritional anemia, unspecified; Z99.81 Dependence on supplemental oxygen; I50.30 Unspecified diastolic (congestive) heart failure; D50.9 Iron deficiency anemia, unspecified; F10.10 Alcohol abuse, uncomplicated; J44.9 Chronic obstructive pulmonary disease, unspecified; E55.9 Vitamin D deficiency, unspecified; E87.6 Hypokalemia; F17.210 Nicotine dependence, cigarettes, uncomplicated; I08.0 Rheumatic disorders of both mitral and aortic valves; Z80.3 Family history of malignant neoplasm of breast
CPT/HCPCS: 70551; 74019; 82271; 82533; 82570; 82607; 82728; 82746; 82805; 83540; 83550; 83735; 83935; 84100; 84133; 84300; 84443; 84550; 87081; 92507; 92508; 92526; 92610; 93005; 97110; 97116; 97162; 97166; 97530; 97535; 99366; J1644; J1940; J3475; J7050; J7060

== ENCOUNTER → 2017-11-20 | Outpatient (CLI) | payer MEDICARE ==
[~2017-11-20] MED LIST changes: -CARV25 PO; +DSS100 PO; +FOLI1 PO; -HYDR25TA PO; +MULT-1239 PO; +PANT40TA25 PO; +SLOMG PO; -TIOT185 IH; +VITAD1000 PO
[2017-11-20 16:13] LABS: ALBUMIN 3.4 g/dL (3.4-5.0); ANION GAP 6 mmol/L (8-16); CALCIUM, TOTAL 9.2 mg/dL (8.8-10.5); CARBON DIOXIDE 30 mmol/L (22-29); CHLORIDE 94 mmol/L (98-107); CREATININE 0.92 mg/dL (0.60-1.30); GLUCOSE,RANDOM 134 mg/dL (70-110); PHOSPHORUS 3.7 mg/dL (2.5-4.9); POTASSIUM 3.5 mmol/L (3.5-5.1); SODIUM SERUM 130 mmol/L (136-145); UREA NITROGEN, BLOOD 10 mg/dL (7-18)
[2017-11-20 16:15] LABS: GLOMERULAR FILTR. RATE CALC > 60 mL/min (>60)
== END | disposition home or self-care (01) ==
LOC: LABPV 14:40
PROVIDERS: ATTEND Internal Medicine Nephrology
DX: E55.9 Vitamin D deficiency, unspecified (principal); D50.9 Iron deficiency anemia, unspecified; E87.1 Hypo-osmolality and hyponatremia; I10 Essential (primary) hypertension; J43.9 Emphysema, unspecified; F32.9 Major depressive disorder, single episode, unspecified
CPT/HCPCS: 83735

== ENCOUNTER → 2018-01-01 | Outpatient (CLI) | payer MEDICARE ==
[2018-01-01 11:41] LABS: BASOPHILS % (AUTO) 0.8 % (0.0-2.0); EOSINOPHILS % (AUTO) 4.3 % (1.0-6.0); HEMATOCRIT 34.2 % (36-46); HEMOGLOBIN 11.5 g/dL (12.0-16.0); LYMPHOCYTES # (AUTO) 1.4 K/uL (1.0-4.8); LYMPHOCYTES % (AUTO) 29.2 % (22.0-44.0); MEAN CORPUSCULAR HEMOGLOBIN 29.2 pg (26.0-34.0); MEAN CORPUSCULAR HGB CONC 33.5 G/dL (31.0-37.0); MEAN CORPUSCULAR VOLUME 87 fL (80-100); MONOCYTES # (AUTO) 0.3 K/uL (0.1-1.0); MONOCYTES % (AUTO) 7.3 % (2.0-9.0); NEUTROPHILS # (AUTO) 2.7 K/uL (1.8-7.7); NEUTROPHILS % (AUTO) 58.4 % (40.0-70.0); PLATELET COUNT (AUTO) 274 K/uL (150-450); RED BLOOD CELL COUNT(AUTO) 3.92 MIL/uL (4.00-5.20); RED CELL DISTRIBUTION WIDTH 13.9 % (11.5-14.5)
[2018-01-01 11:50] LABS: APPEARANCE,URINE CLEAR (CLEAR); BILIRUBIN,URINE NEGATIVE (NEGATIVE); GLUCOSE, URINE (UA) NEGATIVE (NEGATIVE); KETONES,URINE NEGATIVE (NEGATIVE); LEUKOCYTE ESTERASE ,URINE SMALL (NEGATIVE); NITRATE,URINE NEGATIVE (NEGATIVE); OCCULT BLOOD,URINE NEGATIVE (NEGATIVE); PROTEIN,URINE NEGATIVE (NEGATIVE)
[2018-01-01 11:55] LABS: HEMOGLOBIN A1C 6.4 % (4.5-6.2)
[2018-01-01 11:57] LABS: ALBUMIN 3.4 g/dL (3.4-5.0); ANION GAP 5 mmol/L (8-16); CARBON DIOXIDE 30 mmol/L (22-29); CHLORIDE 95 mmol/L (98-107); GLUCOSE,RANDOM 103 mg/dL (70-110); PHOSPHORUS 3.6 mg/dL (2.5-4.9); POTASSIUM 4.1 mmol/L (3.5-5.1); SODIUM SERUM 130 mmol/L (136-145); UREA NITROGEN, BLOOD 15 mg/dL (7-18)
[2018-01-01 12:12] LABS: BACTERIA,URINE None Seen /HPF (None Seen); RBC,URINE None Seen /HPF (0-2); SQUAMOUS EPITHELIAL CELL,UR Few /LPF (None Seen); WBC,URINE 0-2 /HPF (0-5)
[2018-01-01 12:35] LABS: CALCIUM, TOTAL 9.4 mg/dL (8.8-10.5); CREATININE 0.98 mg/dL (0.60-1.30)
[2018-01-01 12:36] LABS: GLOMERULAR FILTR. RATE CALC > 60 mL/min (>60)
== END | disposition home or self-care (01) ==
LOC: LABPV 10:02
PROVIDERS: ATTEND Internal Medicine Nephrology
DX: D50.9 Iron deficiency anemia, unspecified (principal); E55.9 Vitamin D deficiency, unspecified; E87.1 Hypo-osmolality and hyponatremia; R73.09 Other abnormal glucose; I10 Essential (primary) hypertension; J44.9 Chronic obstructive pulmonary disease, unspecified
CPT/HCPCS: 82043; 82570; 83036; 83735